=== PATIENT | female | born 1965 | race Caucasian/White ===

== ENCOUNTER → 2016-09-14 | Outpatient (CLI) | payer SELFPAY | END | disposition home or self-care (01) | LOC: YCFC.O 15:00 | PROVIDERS: ATTEND Nurse Practitioner Family | DX: M25.50 Pain in unspecified joint (principal); R63.5 Abnormal weight gain ==

== ENCOUNTER → 2016-10-06 | Outpatient (CLI) | payer OTHER ==
--- NOTE | 2016-10-06 15:38 | MAM ---
Breast tenderness. DATE OF SERVICE: 10/06/2016 Services provided: Full field digital bilateral diagnostic mammography. CAD, the images were reviewed with R2 computer aided detection. FINDINGS: Routine views are obtained. This represents baseline study. Nodular parenchymal pattern with increased mammographic density. No dominant mass, architectural distortion or clustered microcalcification. IMPRESSION: Benign exam. Recommendation: Routine annual mammography. Findings and recommendations were communicated to the patient. Mastodynia recommendations were given. BIRAD CATEGORY: 2 BENIGN Electronically signed by: Scarlett Jasno MD 10/06/2016 3:37 PM CDT
== END | disposition home or self-care (01) ==
LOC: MAMMO 14:00
PROVIDERS: ATTEND Family Medicine
DX: Z12.31 Encounter for screening mammogram for malignant neoplasm of breast (principal)